=== PATIENT | male | born 1970 | race Two or more races ===

== ENCOUNTER 2016-06-10 15:52 | Emergency (ER) | payer SELFPAY ==
[~2016-06-10] VITALS: Ht 170.2 cm; Wt 104.3 kg
[2016-06-10 16:22] VITALS: BP 134/88
[2016-06-10] MEDS ORDERED: ROBAXIN-750750 MG PO (16:24)
[2016-06-10] MEDS ORDERED: IBUPROFEN600 MG ORAL (16:24)
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
[2016-06-10 16:43] VITALS: BP 134/88
== END 2016-06-10 16:48 | disposition home or self-care (01) ==
LOC: EMR 16:30
DX: S13.4XXA Sprain of ligaments of cervical spine, initial encounter (principal); V43.52XA Car driver injured in collision with other type car in traffic accident, initial encounter; Y93.9 Activity, unspecified; Y92.410 Unspecified street and highway as the place of occurrence of the external cause; R42 Dizziness and giddiness; F07.81 Postconcussional syndrome; M54.9 Dorsalgia, unspecified
CPT/HCPCS: 99284